=== PATIENT | female | born 1975 | race Caucasian/White ===

== ENCOUNTER 2016-03-09 18:14 | Emergency (ER) | payer SELFPAY ==
[2016-03-09] MEDS ORDERED: NACL 0.9% 1000 ML 1,000 ML IV ONE ×3 (20:07→22:59)
--- NOTE | 2016-03-09 20:31 | Emergency Department Report ---
HPI - General Time Seen by Provider: 03/09/16 19:48 - HPI HPI: This is a 41-year-old female presents the emergency department from home with the complaint of depression, suicidal ideations and suicide attempt by overdose of paroxetine. Patient has a history of depression for which she is supposed to take the Paxil and she says that she took about 7-10 of them around 5 PM this afternoon with the intent on ending her life. Her is bedside and says that she has been matted him and they have been having issues and that is why she decided to do it. No previous history of suicide attempts. Currently the patient has no physical complaints but does present with some moderate tachycardia. ED Past Medical Hx - Past Medical History Previous Medical History?: Yes Hx Asthma: Yes Additional medical history: high cholestrol - Surgical History Past Surgical History?: Yes Additional Surgical History: hysterectomy - Social History Smoking Status: Never Smoker Substance Use Type: None - Medications Home Medications: Home Medications Medication Instructions Recorded Confirmed Last Taken Type No Known Home Medications [No 03/09/16 03/09/16 Unknown History Reported Home Medications] ED Review of Systems ROS: Stated complaint: SUICIDE ATTEMPT Other details as noted in HPI Comment: All other systems reviewed and negative Constitutional: denies: chills, fever Eyes: denies: eye pain, eye discharge, vision change ENT: denies: ear pain, throat pain Respiratory: denies: cough, shortness of breath, wheezing Cardiovascular: denies: chest pain, palpitations Gastrointestinal: denies: abdominal pain, nausea, diarrhea Genitourinary: denies: urgency, dysuria, discharge Musculoskeletal: denies: back pain, joint swelling, arthralgia Skin: denies: rash, lesions Neurological: denies: headache, weakness, paresthesias Psychiatric: depression, suicidal thoughts. denies: auditory hallucinations, visual hallucinations, homicidal thoughts Physical Exam - Physical Exam Vital Signs: Vital Signs 03/09/16 19:30 Temperature 98.3 F Pulse Rate 137 H Respiratory 18 Rate Blood Pressure 152/78 [Left] O2 Sat by Pulse 98 Oximetry Physical Exam: GENERAL: The patient is well-developed well-nourished. HEENT: Normocephalic. Atraumatic. Extraocular motions are intact. Patient has moist mucous membranes. Pupils equal reactive to light bilaterally. NECK: Supple. Trachea is midline. CHEST/LUNGS: Clear to auscultation. There is no respiratory distress noted. HEART/CARDIOVASCULAR: Regular. There is mild tachycardia. There is no gallop rub or murmur. ABDOMEN: Abdomen is soft, nontender. Patient has normal bowel sounds. There is no abdominal distention. SKIN: There is no rash. There is no edema. There is no diaphoresis. NEURO: The patient is awake, alert, and oriented. The patient is cooperative. The patient has no focal neurologic deficits. The patient has normal speech. Cranial nerves II through XII grossly intact. MUSCULOSKELETAL: There is no tenderness or deformity. There is no limitation range of motion. There is no evidence of acute injury. ED Course Vital Signs 03/09/16 19:30 Temperature 98.3 F Pulse Rate 137 H Respiratory 18 Rate Blood Pressure 152/78 [Left] O2 Sat by Pulse 98 Oximetry - Consultations Consultation #1: I spoke with poison control regarding the overdose and ingestion of multiple SSRI. Based on the physical presentation, lab results, vitals that were given to them, they feel that the patient should be treated with supportive care regarding IV fluid resuscitation and benzos as necessary. They recommended 6-8 hours of monitoring. 03/09/16 23:21 ED Medical Decision Making - Lab Data Result diagrams: 03/09/16 20:36 03/09/16 20:36 - EKG Data -: EKG Interpreted by Me EKG shows normal: sinus rhythm, axis, intervals, QRS complexes, ST-T waves ( nonspecific ST-T waves) Rate: tachycardia (128 bpm) - EKG Data When compared to previous EKG there are: previous EKG unavailable Interpretation: nonspecific ST-T wave kinga (with tachycardia) - Medical Decision Making 41-year-old female presents after suicide attempt by overdose of Paxil. Patient's labs have been mostly unremarkable. No signs of infection, electrolyte abnormalities, renal insufficiency, glucose abnormalities. Blood alcohol, salicylate, acetaminophen and urine drug screen are negative. Patient is not . No urinary tract infection. There is a moderate amount of hematuria but the patient is currently on her menstrual cycle. Patient has been dealing with some tachycardia during her ED course. It is greatly improved as she is gotten IV fluid resuscitation and a dose of Ativan. I spoke with poison control who feels that the patient should be monitored for 16 hours but otherwise just require supportive care with IV fluid and benzos as necessary. She has been given a dose of Ativan and multiple liters of IV fluid. Heart rate currently at about 110. Patient has no chest pain or palpitations. Patient has been made a 1013 secondary to her suicide attempt and ideations. She is medically clear for psychiatric placement and the crisis service has been contacted to assist. - Differential Diagnosis schizophrenia, bipolar disorder, depression, substance abuse, panic disorde Critical Care Time: No Critical care attestation.: If time is entered above; I have spent that time in minutes in the direct care of this critically ill patient, excluding procedure time. ED Disposition Clinical Impression: Depression Qualifiers: Depression Type: unspecified Qualified Code(s): F32.9 - Major depressive disorder, single episode, unspecified Suicide attempt by drug ingestion Qualifiers: Encounter type: initial encounter Qualified Code(s): T50.902A - Poisoning by unspecified drugs, medicaments and biological substances, intentional self-harm , initial encounter Overdose Qualifiers: Encounter type: initial encounter Injury intent: intentional self-harm Qualified Code(s): T50.902A - Poisoning by unspecified drugs, medicaments and biological substances, intentional self-harm, initial encounter Depression Qualifiers: Depression Type: unspecified Qualified Code(s): F32.9 - Major depressive disorder, single episode, unspecified Disposition: DC/TX PSY HOSP/PSY UNIT Is pt being admited?: No Condition: Stable Time of Disposition: 01:54
[2016-03-09 20:55] LABS: Basophils % (Auto) 0.3 % (0.0-1.8); Hematocrit 38.3 % (30.3-42.9); Hemoglobin 12.9 gm/dl (10.1-14.3); Mean Corpuscular HGB Conc 34 % (30-34); Mean Corpuscular Hemoglobin 31 pg (28-32); Mean Corpuscular Volume 92 fl (79-97); Platelet Count 259 K/mm3 (140-440); Red Blood Count 4.18 M/mm3 (3.65-5.03); Red Cell Distribution Width 13.9 % (13.2-15.2); White Blood Count 10.7 K/mm3 (4.5-11.0)
[2016-03-09 21:07] LABS: Anion Gap 20 mmol/L; BUN/Creatinine Ratio 15.71; Blood Urea Nitrogen 11 mg/dL (7-17); Calcium 8.9 mg/dL (8.4-10.2); Carbon Dioxide 20 mmol/L (22-30); Chloride 102.1 mmol/L (98-107); Glucose 162 mg/dL (65-100); Potassium 3.8 mmol/L (3.6-5.0); Sodium 138 mmol/L (137-145)
[2016-03-09] MEDS ORDERED: ATIVAN IV ONE (22:59)
[2016-03-09 23:31] LABS: Alanine Aminotransferase 13 units/L (7-56); Albumin 3.9 g/dL (3.9-5); Albumin/Globulin Ratio 1.3 %; Alkaline Phosphatase 64 units/L (35-129); Bilirubin,Total 0.2 mg/dL (0.1-1.2); Total Protein 6.8 g/dL (6.3-8.2)
[2016-03-09 23:33] LABS: Bilirubin,Direct < 0.2 mg/dL (0-0.2)
[2016-03-10] MEDS ORDERED: NACL 0.9% 1000 ML 1,000 ML IV ONE ×2 (00:22→01:16)
[2016-03-10 00:57] LABS: Urine Drugs of Abuse Note Disclamer
[2016-03-10 01:05] LABS: Bilirubin,Urine NEG (Negative); Blood,Urine LG (Negative); Ketones,Urine TR mg/dL (Negative); Leukocyte Esterase,Urine NEG (Negative); Mucus,Urine FEW /HPF; Nitrite,Urine NEG (Negative); Protein,Urine <15 mg/dL mg/dL (Negative); Urobilinogen,Urine < 2.0 mg/dL (<2.0)
[2016-03-10] MEDS ORDERED: ATIVAN IV ONE (01:16)
[2016-03-10] MEDS ORDERED: NORMODYNE IV ONE (01:17)
--- NOTE | 2016-03-10 19:46 | Emergency Department Report ---
Blank Doc - Documentation Documentation: Vital Signs - 24 hr 03/09/16 03/09/16 03/10/16 20:00 21:21 01:22 Temperature 98.3 F 98.9 F Pulse Rate 137 H 116 H Respiratory 18 13 18 Rate Blood Pressure 133/62 [Left] O2 Sat by Pulse 98 99 99 Oximetry 03/10/16 03/10/16 03/10/16 04:11 06:11 07:40 Temperature 98.8 F Pulse Rate 109 H 86 88 Respiratory 20 Rate Blood Pressure 109/66 140/86 131/81 [Left] O2 Sat by Pulse 96 Oximetry 03/10/16 19:35 Temperature 98.6 F Pulse Rate 98 H Respiratory 16 Rate Blood Pressure 145/88 [Left] O2 Sat by Pulse 96 Oximetry Vital signs reviewed. No events reported. Awaiting placement
--- NOTE | 2016-03-11 13:55 | Event Note ---
Date: 03/11/16 Vital signs reviewed. No recent events. Await psychiatric placement. Vital Signs 03/09/16 03/09/16 03/09/16 19:00 19:30 20:00 Temperature 98.8 F 98.3 F 98.3 F Pulse Rate 90 137 H 137 H Respiratory 18 18 18 Rate Blood Pressure 126/85 152/78 [Left] O2 Sat by Pulse 98 98 98 Oximetry 03/09/16 03/10/16 03/10/16 21:21 01:22 04:11 Temperature 98.9 F Pulse Rate 116 H 109 H Respiratory 13 18 Rate Blood Pressure 133/62 109/66 [Left] O2 Sat by Pulse 99 99 Oximetry 03/10/16 03/10/16 03/10/16 06:11 07:40 19:35 Temperature 98.8 F 98.6 F Pulse Rate 86 88 98 H Respiratory 20 16 Rate Blood Pressure 140/86 131/81 145/88 [Left] O2 Sat by Pulse 96 96 Oximetry 03/11/16 03/11/16 09:43 13:00 Temperature 98.5 F Pulse Rate 93 H Respiratory 18 18 Rate Blood Pressure 151/100 [Left] O2 Sat by Pulse 99 99 Oximetry
[2016-03-11 21:16] VITALS: BP 134/87
== END 2016-03-12 13:23 ==
LOC: ED 18:14 → EEVIPCON 18:14 → ED 03-12 13:23
DX: T43.222A Poisoning by selective serotonin reuptake inhibitors, intentional self-harm, initial encounter (principal); F32.9 Major depressive disorder, single episode, unspecified; J45.909 Unspecified asthma, uncomplicated; E78.00 Pure hypercholesterolemia, unspecified; Z90.710 Acquired absence of both cervix and uterus; Y92.9 Unspecified place or not applicable
CPT/HCPCS: 36415; 80048; 80074; 80307; 81001; 81025; 84484; 85025; 93005; 93010; 96361; 96374; 96375; 96376; 99285; G0480; J2060; J7030; 80320